=== PATIENT | female | born 1970 | race Hispanic/Latino ===

== ENCOUNTER 2022-11-24 11:55 | Emergency (ER) | payer BC, OTHER ==
[~2022-11-24] VITALS: Ht 170.2 cm; Wt 92.5 kg
[2022-11-24 12:50] LABS: BASOPHILS % (AUTO) 0.2 % (0.0-5.0); EOSINOPHILS % (AUTO) 0.2 % (0.0-8.0); HEMATOCRIT 44.5 % (36-48); LYMPHOCYTES % (AUTO) 11.2 % (21.0-51.0); MEAN CORPUSCULAR HGB CONC 33.3 g/dL (32.0-36.0); MEAN CORPUSCULAR VOLUME 93.1 fL (79-99); MONOCYTES % (AUTO) 4.5 % (3.0-13.0); NEUTROPHILS % (AUTO) 83.4 % (40.0-77.0); PLATELET COUNT (AUTO) 212 K/uL (130-400); RED BLOOD CELL COUNT(AUTO) 4.78 MIL/uL (4.00-5.50); RED CELL DISTRIBUTION WIDTH 12.5 % (11.0-15.5); WHITE BLOOD COUNT (AUTO) 13.2 K/uL (4.8-10.8)
[2022-11-24 12:59] LABS: CREATININE 1.4 mg/dL (0.5-1.5); POTASSIUM 3.7 mmol/L (3.5-5.1)
[2022-11-24] MEDS ORDERED: 0.9%NACL 1000ML 1,000 ML IV ONE (13:00)
[2022-11-24] MEDS ORDERED: MORPHINE 4 MG SYG IVP ONE (13:00)
[2022-11-24] MEDS ORDERED: KETOROLAC 30MG VIAL (30MG/ML) IVP ONE (13:00)
[2022-11-24] MEDS ORDERED: ONDANSETRON 4MG INJ IVP ONE (13:00)
[2022-11-24 13:58] LABS: APPEARANCE,URINE CLOUDY (CLEAR); BILIRUBIN,URINE NEGATIVE (NEGATIVE); COLOR,URINE LIGHT-ORANGE (YELLOW); GLUCOSE, URINE (UA) 200 mg/dL (NEGATIVE); KETONES,URINE 60 mg/dL (NEGATIVE); LEUKOCYTE ESTERASE ,URINE NEGATIVE Leu/uL (NEGATIVE); NITRATE,URINE NEGATIVE (NEGATIVE); OCCULT BLOOD,URINE LARGE (NEGATIVE); PROTEIN,URINE 30 mg/dL (NEGATIVE); UROBILINOGEN,URINE 0.2 mg/dL (0.2-1.0)
[2022-11-24 14:08] LABS: BACTERIA,URINE RARE /HPF (None Seen); MUCUS,URINE RARE LPF (None Seen); RBC,URINE TNTC /HPF (0-1); SQUAMOUS EPITHELIAL CELL,UR RARE /HPF (0-2)
[2022-11-24] MEDS ORDERED: IBUP-2070 PO (14:50)
[2022-11-24] MEDS ORDERED: TAMS-1 PO (14:50)
[2022-11-24] MEDS ORDERED: ONDA-104 PO (14:50)
[2022-11-24] MEDS ORDERED: ACET-2079 PO (14:50)
[2022-11-24 15:00] VITALS: BP 145/72; PULSE 68; RESP 22; O2SAT 99
[2022-11-24] MEDS ORDERED: TAMSULOSIN HCL 0.4 MG CAP.ER.24H PO ONE (15:00)
== END 2022-11-24 15:03 | disposition home or self-care (01) ==
LOC: EDH 11:55
DX: N20.0 Calculus of kidney (principal); I10 Essential (primary) hypertension; Z59.00 Homelessness unspecified; Z59.7 Insufficient social insurance and welfare support; Z90.49 Acquired absence of other specified parts of digestive tract; Z90.710 Acquired absence of both cervix and uterus
CPT/HCPCS: 36415; 74176; 76856; 80053; 81001; 83690; 85025; 96374; 96375; J1885; J2270; J2405; J7030

== ENCOUNTER 2024-02-04 18:36 | Emergency (ER) | payer BC, OTHER ==
[~2024-02-04] VITALS: Ht 170.2 cm; Wt 96.2 kg
[~2024-02-04 18:36] MED LIST: ACET-2079 PO; IBUP-2070 PO; ONDA-104 PO; TAMS-1 PO
[2024-02-04] MEDS: acetaMINOPHEN 500 MG TABLET PO ONE (19:17)
[2024-02-04 19:46] VITALS: BP 142/56; PULSE 89; RESP 20; TEMP 98.8; O2SAT 99
--- NOTE | 2024-02-04 19:47 | ERN ---
ED Note History of Present Illness Stated Complaint: BODY ACHES Chief Complaint: Generalized Body Aches Time Seen by MD: 18:54 Time Seen by Midlevel: 18:54 Dictation: Patient is a 54-year-old female with a history of hysterectomy, cholecystectomy who presents to the emergency department with complaints of generalized body weakness, headache, bilateral ear pain, throat pain, nasal congestion, cough onset yesterday. Patient also reports on and off fevers. Allergies: Coded Allergies: No Known Drug Allergies (Verified Allergy, Unknown, 11/25/13) Home Meds Active Scripts Benzonatate (Tessalon Perles) 100 Mg Cap, 100 MG PO TID for cough, #30 CAP 0 Refills Prov:YAMINI MONTGOMERY 02/04/24 Ondansetron HCl (Ondansetron HCl) 4 Mg Tablet, 4 MG PO TID for 3 Days, #9 TAB Prov:GWENDOLYN HI 11/24/22 Tamsulosin HCl (Flomax) 0.4 Mg Cap.er.24h, 0.4 MG PO DAILY for 5 Days, #5 CAPSULE.DR Prov:GWENDOLYN HI 11/24/22 Ibuprofen (Ibuprofen) 600 Mg Tablet, 600 MG PO Q6H PRN for PAIN, #15 TAB Prov:GWENDOLYN HI 11/24/22 Acetaminophen with Codeine (Acetaminophen-Cod #3 Tablet) 1 Each Tablet, 1 TAB PO Q4H PRN for N20.0 for 5 Days, #10 TAB Prov:GWENDOLYN HI 11/24/22 Past Medical History Past Medical History: No Pertinent History Surgical History: Hysterectomy, Cholecystectomy RN Note Reviewed/Agreed w/PFSH: Yes Review of System Dictation Constitutional: Negative for chills, and weight loss. Positive for fever Eyes: Negative for injury, pain,redness, and discharge ENT: Negative for injury,pain or swelling positive for sore throat, nasal congestion, ear pain Cardiovascular: Negative for chest pain, palpitations, and edema Respiratory: Negative for shortness of breath, and wheezing, positive for cough Abdomen/GI: Negative for abdominal pain, nausea, vomiting, diarrhea, and constipation Back: Negative for injury and pain : Negative for injury, bleeding and discharge MS/Extremity: Negative for injury and deformity Skin: Negative for rash, and discoloration Neuro: Negative for headache, weakness, numbness, tingling, and seizure Psych: Negative for suicide ideation, homicidal ideation, and hallucinations Initial Vital Sign VS Vital Signs Date Time Temp Pulse Resp B/P (MAP) Pulse Ox O2 Delivery O2 Flow Rate FiO2 02/04/24 18:38 98.8 88 20 141/52 98 Room Air 0 02/04/24 19:46 21 Physical Exam Dictation Vital Signs reviewed General Appearance: Alert, oriented x 3, no acute distress, well developed, nourished. Head and Face: non-traumatic. Eyes: PERRL, pink conjunctivas, eyelid no trauma, anterior chamber with arcus senilis. Ears: Pinnas intact and no signs of trauma, erythema ear canals clear and no discharge TM no erythema Nose: No discharge, no bleeding. Oropharynx: Mouth normal, tongue pink. pharynx clear, erythema, tonsils no exudates, no abscesses noted, mucous membrane moist Neck: Supple, non-tender, no thyromegaly, no masses, no JVD, no bruits Breast:Deferred Chest:No tenderness, no crepitus, no paradoxical movement, no retractions Lungs:Clear, well-ventilated, symmetric, no rales, no wheezing, no rhonchi, no stridor, good breath sounds bilaterally Heart: Regular rate, regular rhythm, no murmur, no gallops Vascular: no peripheral edema, Abdomen: Soft, positive bowel sounds, nondistended, no guarding, nontender, no rebound, no masses no hepatomegaly, no splenomegaly, no Vasques's sign, no hernias. Rectal: Deferred Genital: Deferred Neurological: Normal speech, motor function intact, sensory function intact Musculoskeletal: Neck nontender, full range of motion, back nontender, full range of motion, Extremities: nontender, full range of motion Skin: Color pink, dry, no turgor, no rash, no lacerations, no abrasions, no contusions. Lymphatic: Deferred Results (Laboratory/Radiology) Laboratory/Radiology Laboratory Tests Test 02/04/24 19:15 Influenza Type A Antigen Negative For Type A Influenza Type B Antigen Negative For Type B SARS-CoV-2 Antigen (Rapid) PRESUMPTIVE NEGATIVE Group A Streptococcus Rapid negative (NEGATIVE) Labs Reviewed?: Yes ED Course ED Course Orders Procedure Category Date Status Time Covid19 (Sars Antigen LAB 02/04/24 Complete Rapid) 19:11 Rapid (Group A Strep) LAB 02/04/24 Complete 19:11 Influenza Type A & B, LAB 02/04/24 Complete Rapid 19:11 Acetaminophen 500mg PHA 02/04/24 Complete Tab (Tylenol 500mg T 19:30 Current Medications Medications (Trade) Dose Ordered Sig/Pat Route PRN Reason Start Time Stop Time Status Last Admin Dose Admin Acetaminophen (TYLenol 500MG TAB) 1,000 mg ONCE ONCE PO 02/04/24 19:30 02/04/24 19:31 DC 02/04/24 19:17 Vital Signs Date Time Temp Pulse Resp B/P (MAP) Pulse Ox O2 Delivery O2 Flow Rate FiO2 02/04/24 19:46 98.8 89 20 142/56 99 Room Air* 0 21 02/04/24 18:38 98.8 88 20 141/52 98 Room Air 0 Medical Decision Making MDM Patient is a 54-year-old female with a history of hysterectomy, cholecystectomy who presents to the emergency department with complaints of generalized body weakness, headache, bilateral ear pain, throat pain, nasal congestion, cough onset yesterday. Patient also reports on and off fevers. Differential diagnosis: COVID 19 infection, flu, strep throat Need for hospitalization: Patient does not meet criteria for hospitalization. Patients negative for swabs but symptoms consistent with URI. Patient in no distress, will be discharge to follow up with pcp. There are no social concerns with this patient. DX & DISP Disposition: Discharge Departure Impression: Primary Impression: URI (upper respiratory infection) Additional Impressions: Cough, Body aches Condition: Stable Scripts Benzonatate (Tessalon Perles) 100 Mg Cap 100 MG PO TID for cough, #30 CAP 0 Refills Prov: YAMINI MONTGOMERY RN OTOLARYNGOLOGY 02/04/24 Additional Instructions: Please follow up with primary doctor in 1-2 days. You may use [id number] medications for symptoms. Stay well hydrated. FOLLOW-UP WITH PRIMARY CARE PROVIDER IN 1 TO 2 DAYS. TAKE MEDICATIONS DIRECTED HERE IN THE EMERGENCY ROOM. OKAY TO CONTINUE HOME MEDICATIONS UNLESS OTHERWISE DISCUSSED DURING YOUR VISIT IN THE EMERGENCY ROOM TODAY. RETURN TO YOUR NEAREST EMERGENCY ROOM IF SYMPTOMS WORSEN OR IF THERE IS NO IMPROVEMENT. CALL 911 IF YOU NEED IMMEDIATE ASSISTANCE. TAKE TYLENOL OR MOTRIN [id number] NEEDED AND IF NO CONTRAINDICATIONS ARE PRESENT. INCREASE ORAL HYDRATION. A WOUND CULTURE OR URINE CULTURE WAS ORDERED HERE IN THE EMERGENCY ROOM DEPARTMENT PLEASE FOLLOW-UP WITH PRIMARY CARE PROVIDER AND ADVISE THEM TO GET REPEAT PORTS FROM OUR FACILITY. IF YOU HAD ANY LENIN WRAP/SPLINTS THAT WERE APPLIED HERE, PLEASE DO NOT REMOVE THEM UNTIL YOU SEE YOUR PRIMARY CARE OR SPECIALTY. Referrals: SELF,REFERRAL (PCP) Time of Disposition: 20:26 I have reviewed the case, and I agree with, Diagnosis and Plan I performed the substantive portion of the visit. I have reviewed and personally made and approve the management plan that is documented in the note by myself or the DAVID. I acknowledge for responsibility for the patient's management plan. YAMINI MONTGOMERY Feb 04, 2024 19:47 LAUREN ALSTON DO Feb 04, 2024 21:50
[2024-02-04 19:49] LABS: RAPID GROUP A STREP negative (NEGATIVE)
[2024-02-04 19:55] LABS: COVID19 (SARS ANTIGEN RAPID) PRESUMPTIVE NEGATIVE (NEGATIVE)
[2024-02-04 19:56] LABS: INFLUENZA TYPE A Negative For Type A (NEGATIVE); INFLUENZA TYPE B Negative For Type B (NEGATIVE)
[2024-02-04] MEDS ORDERED: BENZ-39 PO (20:28)
== END 2024-02-04 20:34 | disposition home or self-care (01) ==
LOC: EDH 18:36
DX: J06.9 Acute upper respiratory infection, unspecified (principal); H92.03 Otalgia, bilateral; Z20.822 Contact with and (suspected) exposure to COVID-19; Z79.899 Other long term (current) drug therapy; Z90.49 Acquired absence of other specified parts of digestive tract; Z90.710 Acquired absence of both cervix and uterus
CPT/HCPCS: 87426; 87804; 87880

== ENCOUNTER 2024-10-01 08:29 | Emergency (ER) | payer BC, OTHER ==
[~2024-10-01] VITALS: Ht 170.2 cm; Wt 90.7 kg
[~2024-10-01 08:29] MED LIST changes: +BENZ-39 PO; -TAMS-1 PO; +TAMS-55 PO
[2024-10-01 09:04] LABS: RAPID GROUP A STREP negative (NEGATIVE)
[2024-10-01 09:07] LABS: SARS-CoV-2, RNA, NAAT NEGATIVE SARS CoV-2 (NEGATIVE)
[2024-10-01 09:14] LABS: INFLUENZA TYPE A Negative For Type A (NEGATIVE); INFLUENZA TYPE B Negative For Type B (NEGATIVE)
--- NOTE | 2024-10-01 09:22 | ERN ---
General Chief Complaint: Congestion Stated Complaint: COUGH AND CONGESTION Time Seen by MD: 08:30 Source: patient History of Present Illness Initial Comments 54-year-old female coming in URI symptoms. Per patient these symptoms began two days ago. Patient states that he has felt chills. Allergies: Coded Allergies: No Known Drug Allergies (Verified Allergy, Unknown, 11/25/13) Home Meds Active Scripts Benzonatate (Tessalon Perles) 100 Mg Cap, 100 MG PO TID for cough, #30 CAP 0 Refills Prov:JONG MONTGOMERY MD 02/04/24 Ondansetron HCl (Ondansetron HCl) 4 Mg Tablet, 4 MG PO TID for 3 Days, #9 TAB Prov:GWENDOLYN HI 11/24/22 Tamsulosin HCl (Flomax) 0.4 Mg Cap.er.24h, 0.4 MG PO DAILY for 5 Days, #5 CAPSULE.DR Prov:GWENDOLYN HI 11/24/22 Ibuprofen (Ibuprofen) 600 Mg Tablet, 600 MG PO Q6H PRN for PAIN, #15 TAB Prov:GWENDOLYN HI 11/24/22 Acetaminophen with Codeine (Acetaminophen-Cod #3 Tablet) 1 Each Tablet, 1 TAB PO Q4H PRN for N20.0 for 5 Days, #10 TAB Prov:GWENDOLYN HI 11/24/22 Past Medical History Past Medical History: Diabetes-Type II, Hypertension Past Surgical History: Hysterectomy, Cholecystectomy ROS Dictation CONSTITUTIONAL: No chills, no fever, no weakness, no diaphoresis, no malaise. HEAD/FACE: No signs of trauma. EENT: No eye pain, no blurred vision, no tearing, no double vision, no ear pain, no ear discharge, no nose pain, nasal congestion, throat pain, no throat swelling, no mouth pain. RESPIRATORY: No cough, no orthopnea, no SOB, no stridor, no wheezing. CARDIOVASCULAR: No chest pain, no edema, no palpitations, no syncope. GASTROINTESTINAL/ABDOMINAL: no abdominal pain, no constipation, no diarrhea, no nausea, no vomiting. GENITOURINARY: No abnormal discharge, no dysuria, no frequent urination, no hematuria. No complaints of pain in the genitals. MUSCULOSKELETAL: No back pain, no gout, no joint pain, no joint swelling, no muscle pain, no muscle stiffness, no neck pain. INTEGUMENTARY: No change in color, no change in hair/nails, no dryness, no lesion, no lumps, no rash. NEUROLOGICAL/PSYCH: No anxiety, not depressed, no emotional problem, no headache, no numbness, no pre-existing deficit, no history of seizures, no tremors, no weakness. HEMATOLOGIC/LYMPHATIC: Not anemic, no history of blood clots, no apparent bleeding, no bruising, glands not swollen. All Systems Negative, Except as Noted. Physical Exam Physical Exam Dictation VITAL SIGNS: Reviewed. GENERAL APPEARANCE: Alert, oriented x3, no acute distress, obese. HEAD AND FACE: Non-traumatic. EYES: PERRL, pink conjunctivas, eyelid no trauma, anterior chamber clear. EARS: Pinnas intact and no signs of trauma or erythema. Ear canals clear and no discharge. TMs erythema. NOSE: No discharge, no bleeding. OROPHARYNX: Mouth normal, teeth no caries, tongue pink. Pharynx erythema. Tonsils no exudates, no abscesses noted. Mucous membrane moist. NECK: Supple, non-tender, no thyromegaly, no masses, no JVD, no bruits. BREAST: Deferred. CHEST: No tenderness, no crepitus, no paradoxical movement, no retractions. LUNGS: Clear, well-ventilated, symmetric, no rales, no wheezing, no rhonchi, no stridor, good breath sounds bilaterally. HEART: Regular rate, regular rhythm, no murmur, no gallops. VASCULAR: No peripheral edema. ABDOMEN: Soft, positive bowel sounds, distended, no guarding, tender, no rebound, no masses no hepatomegaly, no splenomegaly, no Vasques's sign, no hernias. RECTAL: Deferred. GENITAL: Deferred. NEUROLOGICAL: Normal speech, gross motor function intact, gross sensory function intact. MUSCULOSKELETAL: Neck nontender, full range of motion, back nontender, full range of motion. EXTREMITIES: Nontender, full range of motion. SKIN: Color pink, dry, no turgor, no rash, no lacerations, no abrasions, no contusions. LYMPHATICS: Deferred. Results Laboratory and Microbiology Lab and Micro Result Laboratory Tests Test 10/01/24 08:49 Influenza Type A Antigen Negative For Type A Influenza Type B Antigen Negative For Type B SARS-CoV-2, RNA, NAAT NEGATIVE SARS CoV-2 Group A Streptococcus Rapid negative (NEGATIVE) Labs Reviewed?: Yes MDM MDM: Differential diagnosis: URI, COVID, strep, Rationale: Tests considered and ordered secondary to shared decision making include: labs, ECG and radiology Previous outside records reviewed: Old ER visits. Risk of complication and/or morbidity or mortality of patient management: None Medications-Per medication reconciliation Need for hospitalization: Patient does not meet criteria for hospitalization. Patient is a 54-year-old female coming in to be evaluated for URI symptoms. On physical exam there is erythema of the oropharynx area. Suggestive of strep pharyngitis. Patient will be discharged stable condition. ED Course Orders Procedure Category Date Status Time Covid Rna Naat LAB 10/01/24 Complete 08:47 Influenza Type A & B, LAB 10/01/24 Complete Rapid 08:47 Rapid (Group A Strep) LAB 10/01/24 Complete 08:47 Vital Signs Date Time Temp Pulse Resp B/P (MAP) Pulse Ox O2 Delivery O2 Flow Rate FiO2 10/01/24 08:30 100.0 84 20 153/93 98 Room Air 0 DX & DISP Disposition: Discharge Departure Impression: Primary Impression: Strep pharyngitis Condition: Stable Scripts Loratadine (Loratadine) 10 Mg Tablet 1 TAB PO DAILY for allergy symptoms for 30 Days, #30 TAB 0 Refills Prov: CAMERON RUSSO MD 10/01/24 Fluticasone Propionate (Flonase Nasal Trosky) 50 Mcg/Actuation Trosky 2 SPRAY NS DAILY, #16 GM 0 Refills Prov: CAMERON RUSSO MD 10/01/24 Amoxicillin/Potassium Clav (Amox Tr-K Clv 875-125 mg Tab) 875 Mg-125 Mg Tablet 1 TAB PO BID for 10 Days, #20 TAB 0 Refills Prov: CAMERON RUSSO MD 10/01/24 Additional Instructions: FOLLOW-UP WITH PRIMARY CARE PROVIDER IN 1 TO 2 DAYS. TAKE MEDICATIONS DIRECTED HERE IN THE EMERGENCY ROOM. OKAY TO CONTINUE HOME MEDICATIONS UNLESS OTHERWISE DISCUSSED DURING YOUR VISIT IN THE EMERGENCY ROOM TODAY. RETURN TO YOUR NEAREST EMERGENCY ROOM IF SYMPTOMS WORSEN OR IF THERE IS NO IMPROVEMENT. CALL 911 IF YOU NEED IMMEDIATE ASSISTANCE. TAKE TYLENOL [id number] NEEDED AND IF NO CONTRAINDICATIONS ARE PRESENT. INCREASE ORAL HYDRATION. A WOUND CULTURE OR URINE CULTURE WAS ORDERED HERE IN THE EMERGENCY ROOM DEPARTMENT PLEASE FOLLOW-UP WITH PRIMARY CARE PROVIDER AND ADVISE THEM TO GET REPEAT PORTS FROM OUR FACILITY. IF YOU HAD ANY LENIN WRAP/SPLINTS THAT WERE APPLIED HERE, PLEASE DO NOT REMOVE THEM UNTIL YOU SEE YOUR PRIMARY CARE OR SPECIALTY. Referrals: Referrals: ALNODRA JOSÉ MD (PCP) Time of Disposition: 09:25 CAMERON RUSSO MD Oct 01, 2024 09:22
[2024-10-01] MEDS ORDERED: FLUT16H NS (09:26)
[2024-10-01] MEDS ORDERED: LORA10TA7 PO (09:26)
[2024-10-01] MEDS ORDERED: AMOX1TAB16 PO (09:26)
[2024-10-01] MEDS ORDERED: acetaMINOPHEN 500 MG TABLET PO ONE (09:30)
[2024-10-01 09:36] VITALS: BP 132/80; PULSE 80; RESP 16; TEMP 99.5; O2SAT 98
== END 2024-10-01 09:41 | disposition home or self-care (01) ==
LOC: EDH 08:29
DX: J02.0 Streptococcal pharyngitis (principal); E11.9 Type 2 diabetes mellitus without complications; I10 Essential (primary) hypertension; Z90.49 Acquired absence of other specified parts of digestive tract; Z90.710 Acquired absence of both cervix and uterus; Z20.822 Contact with and (suspected) exposure to COVID-19
CPT/HCPCS: 87635; 87804; 87880; 99283